=== PATIENT | female | born 1970 | race Two or more races ===

== ENCOUNTER 2017-07-27 08:03 | Emergency (ER) | payer MEDICAID ==
[~2017-07-27] VITALS: Ht 157.5 cm; Wt 99.8 kg
[2017-07-27 08:21] VITALS: BP 117/77
== END 2017-07-27 09:53 | disposition home or self-care (01) ==
LOC: ER 08:03
DX: J04.0 Acute laryngitis (principal); J40 Bronchitis, not specified as acute or chronic; H66.92 Otitis media, unspecified, left ear
CPT/HCPCS: 71046